=== PATIENT | male | born 1945 | race Caucasian/White ===

== ENCOUNTER 2019-09-14 07:17 | Outpatient (CLI) | payer MEDICARE, OTHER, SELFPAY ==
[2019-09-14 08:06] LABS: Alanine Aminotransferase 19 U/L (4-50); Albumin Level 4.4 g/dL (3.5-5.1); Alkaline Phosphatase 49 U/L (38-126); Aspartate Amino Transferase 22 U/L (17-59); Bilirubin,Total 0.5 mg/dL (0.2-1.3); Blood Urea Nitrogen 18 mg/dL (9-20); Calcium 9.4 mg/dL (8.4-10.2); Carbon Dioxide 28 mmol/L (22-30); Chloride 102 mmol/L (98-107); Cholesterol 123 mg/dL (0-200); Estimated Glomerular Filt Rate > 60; Glucose 142 mg/dL (75-110); HDL Direct 40 mg/dL; Potassium 3.8 mmol/L (3.4-5.0); Sodium 136 mmol/L (137-145); Triglycerides 99 mg/dL (<150)
[2019-09-14 08:11] LABS: Creatinine Urine 71.7 mg/dL
[2019-09-14 08:18] LABS: LDL Cholesterol Direct 66 mg/dL
[2019-09-14 08:24] LABS: Vitamin D 25 Hydroxy 67.9 ng/mL
[2019-09-14 08:52] LABS: Microalbumin Urine Random < 6.0 mg/L (0-16.7)
[2019-09-14 08:53] LABS: MALB Creatinine Ratio < 8.4 mg/g (0-30)
== END 2019-09-14 07:18 | disposition home or self-care (01) ==
PROVIDERS: PCP Internal Medicine; Referring Provider Nurse Practitioner; Visit Provider Internal Medicine
DX: E11.9 Type 2 diabetes mellitus without complications (principal); E78.5 Hyperlipidemia, unspecified; E55.9 Vitamin D deficiency, unspecified; I10 Essential (primary) hypertension
CPT/HCPCS: 36415; 80053; 80061; 82043; 82306; 83036

== ENCOUNTER 2020-07-18 06:45 | Outpatient (CLI) | payer MEDICARE, OTHER, SELFPAY ==
[2020-07-18 07:52] LABS: Hemoglobin A1C 8.3 % (<5.7)
[2020-07-18 07:59] LABS: Alanine Aminotransferase 22 U/L (4-50); Albumin Level 4.3 g/dL (3.5-5.1); Alkaline Phosphatase 48 U/L (38-126); Anion Gap 5 mmol/L (8-16); Aspartate Amino Transferase 22 U/L (17-59); Bilirubin,Total 0.6 mg/dL (0.2-1.3); Blood Urea Nitrogen 16 mg/dL (9-20); Calcium 9.2 mg/dL (8.4-10.2); Carbon Dioxide 30 mmol/L (22-30); Chloride 103 mmol/L (98-107); Cholesterol 125 mg/dL (0-200); Estimated Glomerular Filt Rate > 60; Glucose 184 mg/dL (75-110); HDL Direct 40 mg/dL; Potassium 3.9 mmol/L (3.4-5.0); Sodium 138 mmol/L (137-145); Triglycerides 188 mg/dL (<150)
[2020-07-18 08:10] LABS: LDL Cholesterol Direct 66 mg/dL
[2020-07-18 08:43] LABS: Creatinine Urine 67.4 mg/dL
[2020-07-18 08:47] LABS: MALB Creatinine Ratio 18.4 mg/g (0-30); Microalbumin Urine Random 12.4 mg/L (0-16.7)
[2020-07-18 08:58] LABS: Vitamin D 25 Hydroxy 58.7 ng/mL
== END 2020-07-18 06:46 | disposition home or self-care (01) ==
LOC: ANHLAB 06:48
PROVIDERS: PCP Internal Medicine; Visit Provider Internal Medicine
DX: E55.9 Vitamin D deficiency, unspecified (principal); I10 Essential (primary) hypertension; Z79.899 Other long term (current) drug therapy; E78.5 Hyperlipidemia, unspecified; E11.9 Type 2 diabetes mellitus without complications
CPT/HCPCS: 36415; 80053; 80061; 82043; 82306; 83036

== ENCOUNTER 2021-01-26 06:34 | Outpatient (CLI) | payer MEDICARE, OTHER, SELFPAY ==
[2021-01-26 07:29] LABS: Alanine Aminotransferase 20 U/L (4-50); Albumin Level 4.3 g/dL (3.5-5.1); Alkaline Phosphatase 49 U/L (38-126); Anion Gap 8 mmol/L (8-16); Aspartate Amino Transferase 22 U/L (17-59); Bilirubin,Total 0.5 mg/dL (0.2-1.3); Blood Urea Nitrogen 18 mg/dL (9-20); Calcium 9.2 mg/dL (8.4-10.2); Carbon Dioxide 28 mmol/L (22-30); Chloride 103 mmol/L (98-107); Cholesterol 131 mg/dL (0-200); Estimated Glomerular Filt Rate > 60; Glucose 207 mg/dL (65-110); HDL Direct 39 mg/dL; Potassium 4.2 mmol/L (3.4-5.0); Sodium 139 mmol/L (137-145); Triglycerides 157 mg/dL (<150)
[2021-01-26 07:40] LABS: LDL Cholesterol Direct 61 mg/dL
[2021-01-26 07:53] LABS: Hemoglobin A1C 8.4 % (<5.7)
[2021-01-26 07:59] LABS: Prostate Specific Antigen 2.4 ng/mL (< OR = 4.0)
[2021-01-26 08:11] LABS: Creatinine Urine 108.3 mg/dL
[2021-01-26 08:15] LABS: MALB Creatinine Ratio 17.9 mg/g (0-30); Microalbumin Urine Random 19.4 mg/L (0-16.7)
[2021-01-26 08:17] LABS: Vitamin D 25 Hydroxy 66.7 ng/mL
== END 2021-01-26 06:35 | disposition home or self-care (01) ==
LOC: ANHLAB 06:41
PROVIDERS: PCP Internal Medicine; Visit Provider Internal Medicine
DX: Z12.5 Encounter for screening for malignant neoplasm of prostate (principal); E78.5 Hyperlipidemia, unspecified; I10 Essential (primary) hypertension; E11.9 Type 2 diabetes mellitus without complications; E55.9 Vitamin D deficiency, unspecified
CPT/HCPCS: 36415; 80053; 80061; 82043; 82306; 83036; 84153; G0103

== ENCOUNTER 2021-07-30 06:47 | Outpatient (CLI) | payer MEDICARE, OTHER, SELFPAY ==
[2021-07-30 07:47] LABS: Alanine Aminotransferase 18 U/L (4-50); Albumin Level 4.3 g/dL (3.5-5.1); Alkaline Phosphatase 51 U/L (38-126); Anion Gap 5 mmol/L (8-16); Aspartate Amino Transferase 20 U/L (17-59); Bilirubin,Total 0.5 mg/dL (0.2-1.3); Blood Urea Nitrogen 17 mg/dL (9-20); Calcium 8.9 mg/dL (8.4-10.2); Carbon Dioxide 29 mmol/L (22-30); Chloride 103 mmol/L (98-107); Cholesterol 145 mg/dL (0-200); Estimated Glomerular Filt Rate > 60; Glucose 152 mg/dL (65-110); HDL Direct 40 mg/dL; Sodium 137 mmol/L (137-145); Triglycerides 163 mg/dL (<150)
[2021-07-30 07:58] LABS: LDL Cholesterol Direct 68 mg/dL
[2021-07-30 08:12] LABS: Hemoglobin A1C 6.9 % (<5.7)
== END 2021-07-30 06:48 | disposition home or self-care (01) ==
LOC: ANHLAB 06:49
PROVIDERS: PCP Internal Medicine; Visit Provider Internal Medicine
DX: E55.9 Vitamin D deficiency, unspecified (principal); E11.9 Type 2 diabetes mellitus without complications; I10 Essential (primary) hypertension; E78.5 Hyperlipidemia, unspecified
CPT/HCPCS: 36415; 80053; 80061; 82306; 83036

== ENCOUNTER 2022-02-14 06:41 | Outpatient (CLI) | payer MEDICARE, OTHER, SELFPAY ==
[2022-02-14 08:17] LABS: Alanine Aminotransferase 21 U/L (6-50); Albumin Level 4.5 g/dL (3.5-5.1); Alkaline Phosphatase 45 U/L (38-126); Anion Gap 12 mmol/L (8-16); Aspartate Amino Transferase 20 U/L (17-59); Bilirubin,Total 0.6 mg/dL (0.2-1.3); Blood Urea Nitrogen 18 mg/dL (9-20); Calcium 8.8 mg/dL (8.4-10.2); Carbon Dioxide 26 mmol/L (22-30); Chloride 101 mmol/L (98-107); Cholesterol 139 mg/dL (0-200); Estimated Glomerular Filt Rate > 60; Glucose 171 mg/dL (65-110); HDL Direct 40 mg/dL; Potassium 3.8 mmol/L (3.4-5.0); Sodium 139 mmol/L (137-145); Triglycerides 205 mg/dL (<150)
[2022-02-14 08:28] LABS: LDL Cholesterol Direct 63 mg/dL
[2022-02-14 08:42] LABS: Hemoglobin A1C 8.2 % (<5.7)
== END 2022-02-14 06:42 | disposition home or self-care (01) ==
LOC: ANHLAB 06:43
PROVIDERS: PCP Internal Medicine; Visit Provider Nurse Practitioner
DX: E78.5 Hyperlipidemia, unspecified (principal); E11.9 Type 2 diabetes mellitus without complications
CPT/HCPCS: 36415; 80053; 80061; 83036

== ENCOUNTER 2022-08-14 06:37 | Outpatient (CLI) | payer MEDICARE, OTHER, SELFPAY ==
[2022-08-14 07:47] LABS: Alanine Aminotransferase 22 U/L (6-50); Albumin Level 4.3 g/dL (3.5-5.1); Alkaline Phosphatase 57 U/L (38-126); Anion Gap 9 mmol/L (8-16); Aspartate Amino Transferase 24 U/L (17-59); Bilirubin,Total 0.9 mg/dL (0.2-1.3); Blood Urea Nitrogen 21 mg/dL (9-20); Calcium 8.8 mg/dL (8.4-10.2); Carbon Dioxide 27 mmol/L (22-30); Chloride 99 mmol/L (98-107); Cholesterol 136 mg/dL (0-200); Estimated Glomerular Filt Rate > 60; Glucose 139 mg/dL (65-110); HDL Direct 39 mg/dL; Potassium 3.7 mmol/L (3.4-5.0); Sodium 135 mmol/L (137-145); Triglycerides 142 mg/dL (<150)
[2022-08-14 07:58] LABS: LDL Cholesterol Direct 68 mg/dL
[2022-08-14 12:05] LABS: Hemoglobin A1C 7.4 % (<5.7)
[2022-08-14 13:17] LABS: Vitamin D 25 Hydroxy 70.7 ng/mL
== END 2022-08-14 06:38 | disposition home or self-care (01) ==
PROVIDERS: PCP Internal Medicine; Visit Provider Nurse Practitioner
DX: E11.9 Type 2 diabetes mellitus without complications (principal); I10 Essential (primary) hypertension; E78.5 Hyperlipidemia, unspecified; E55.9 Vitamin D deficiency, unspecified
CPT/HCPCS: 36415; 80053; 80061; 82306; 83036

== ENCOUNTER 2023-02-24 06:42 | Outpatient (CLI) | payer MEDICARE, OTHER, SELFPAY ==
[2023-02-24 07:49] LABS: Alanine Aminotransferase 19 U/L (6-50); Albumin Level 4.3 g/dL (3.5-5.1); Alkaline Phosphatase 44 U/L (38-126); Anion Gap 11 mmol/L (8-16); Aspartate Amino Transferase 19 U/L (17-59); Bilirubin,Total 0.7 mg/dL (0.2-1.3); Blood Urea Nitrogen 20 mg/dL (9-20); Calcium 9.4 mg/dL (8.4-10.2); Carbon Dioxide 26 mmol/L (22-30); Chloride 101 mmol/L (98-107); Cholesterol 145 mg/dL (0-200); Estimated Glomerular Filt Rate > 60; Glucose 141 mg/dL (65-110); HDL Direct 44 mg/dL; Sodium 138 mmol/L (137-145); Triglycerides 189 mg/dL (<150)
[2023-02-24 08:01] LABS: LDL Cholesterol Direct 71 mg/dL
[2023-02-24 08:27] LABS: Hemoglobin A1C 7.5 % (<5.7)
== END 2023-02-24 06:43 | disposition home or self-care (01) ==
LOC: ANHLAB 06:44
PROVIDERS: PCP Family Medicine; Visit Provider Nurse Practitioner
DX: E78.5 Hyperlipidemia, unspecified (principal); E11.9 Type 2 diabetes mellitus without complications
CPT/HCPCS: 36415; 80053; 80061; 83036

== ENCOUNTER 2023-08-28 06:43 | Outpatient (CLI) | payer MEDICARE, SELFPAY ==
[2023-08-28 07:30] LABS: Basophils Percent Auto 0.6 % (0.2-1.2); Eosinophils Absolute Auto 0.2 K/mm3 (0-0.3); Eosinophils Percent Auto 4.1 % (0-4.4); Hematocrit 46.7 % (42.0-52.0); Hemoglobin 15.6 g/dL (14.0-18.0); Immature Granulocyte Absolute 0.02 K/mm3 (0.00-0.031); Immature Granulocyte Percent A 0.4 % (0-0.5); Lymphocytes Absolute Auto 1.26 K/mm3 (0.9-3.2); Lymphocytes Percent Auto 25.7 % (18.3-44.2); Mean Corpuscular HGB Conc 33.4 g/dl (32-36); Mean Corpuscular Hemoglobin 30.1 pg (26-34); Mean Platelet Volume 10.8 fl (7.4-10.4); Monocytes Absolute Auto 0.4 K/mm3 (0.1-0.6); Monocytes Percent Auto 7.8 % (2.6-8.5); Neutrophils Percent Auto 61.4 % (45.5-73.1); Platelet Count Result 181 k/mm3 (150-375); Red Blood Count 5.19 M/mm3 (4.6-6.20); White Blood Count 4.9 K/mm3 (4.5-10.0)
[2023-08-28 07:56] LABS: Creatinine Urine 57.2 mg/dL
[2023-08-28 08:01] LABS: MALB Creatinine Ratio 39.5 mg/g (0-30); Microalbumin Urine Random 22.6 mg/L (0-16.7)
[2023-08-28 08:25] LABS: Hemoglobin A1C 7.5 % (<5.7)
[2023-08-28 08:55] LABS: Alanine Aminotransferase 22 U/L (6-50); Albumin Level 4.7 g/dL (3.5-5.1); Alkaline Phosphatase 55 U/L (38-126); Anion Gap 11 mmol/L (4-12); Aspartate Amino Transferase 22 U/L (17-59); Bilirubin,Total 0.8 mg/dL (0.2-1.3); Blood Urea Nitrogen 23 mg/dL (9-20); Calcium 9.6 mg/dL (8.4-10.2); Carbon Dioxide 22 mmol/L (22-30); Chloride 105 mmol/L (98-107); Estimated Glomerular Filt Rate > 60; Glucose 201 mg/dL (65-110); Potassium 4.1 mmol/L (3.4-5.0); Sodium 138 mmol/L (137-145)
[2023-08-28 09:22] LABS: Prostate Specific Antigen 2.9 ng/mL (< OR = 4.0)
== END 2023-08-28 06:44 | disposition home or self-care (01) ==
PROVIDERS: PCP Nurse Practitioner; Visit Provider Nurse Practitioner Family
DX: E11.9 Type 2 diabetes mellitus without complications (principal); I10 Essential (primary) hypertension; N40.0 Benign prostatic hyperplasia without lower urinary tract symptoms; R97.20 Elevated prostate specific antigen [PSA]; Z12.5 Encounter for screening for malignant neoplasm of prostate
CPT/HCPCS: 36415; 80053; 82043; 83036; 84153; 85025; G0103

== ENCOUNTER 2024-03-02 06:46 | Outpatient (CLI) | payer MEDICARE, SELFPAY ==
[2024-03-02 07:47] LABS: Hemoglobin A1C 8.3 % (<5.7)
[2024-03-02 07:51] LABS: Alanine Aminotransferase 17 U/L (6-50); Albumin Level 4.5 g/dL (3.5-5.1); Alkaline Phosphatase 48 U/L (38-126); Anion Gap 10 mmol/L (4-12); Aspartate Amino Transferase 21 U/L (17-59); Blood Urea Nitrogen 26 mg/dL (9-20); Calcium 9.5 mg/dL (8.4-10.2); Carbon Dioxide 28 mmol/L (22-30); Chloride 100 mmol/L (98-107); Cholesterol 152 mg/dL (0-200); Estimated Glomerular Filt Rate > 60; Glucose 145 mg/dL (65-110); HDL Direct 46 mg/dL; Potassium 4.5 mmol/L (3.4-5.0); Sodium 138 mmol/L (137-145); Triglycerides 215 mg/dL (<150)
[2024-03-02 08:02] LABS: LDL Cholesterol Direct 63 mg/dL
== END 2024-03-02 06:47 | disposition home or self-care (01) ==
LOC: ANHLAB 06:48
PROVIDERS: PCP Nurse Practitioner; Visit Provider Nurse Practitioner
DX: E78.5 Hyperlipidemia, unspecified (principal); E11.9 Type 2 diabetes mellitus without complications
CPT/HCPCS: 36415; 80053; 80061; 83036

== ENCOUNTER 2024-07-06 06:47 | Outpatient (CLI) | payer MEDICARE, SELFPAY ==
--- OUTSIDE RECORDS SUMMARY | 2024-07-06 06:51 | XMS_ITS | Referral Summary ---
Author Organization [facility] [address] Address [address] [place] [address] Care Team Providers Care Terminal Superintendent Name Role Phone Virgil Rivera DO Primary Care Provider [phone] Allergies No known active allergies Medications SITagliptin (JANUVIA) 100 mg tablet take 1 tablet (100MG) by oral route every day 0 3 Active cholecalciferol (VITAMIN D3) 2,000 unit tablet take 1 by Oral route every day 0 3 Active aspirin (ASPIRIN LOW DOSE) 81 mg tablet take 1 Tablet (81MG) by oral route every day 0 3 Active metFORMIN (GLUCOPHAGE) 500 mg tablet take 3 Tablet (1500MG) by oral route 2 times every day with morning and evening meals 0 3 Active Additional Information Patient not taking.Reported on 07/20/2019 simvastatin (ZOCOR) 40 mg tablet take 1 tablet by oral route every day in the evening 0 0 4 Active lisinopril (PRINIVIL,ZESTR IL) 2.5 mg tablet take 1 tablet by oral route every day 0 0 5 Active dyubkmrn-xdw-NN -lycopen-lutein 0.4-300-250 mg-mcg-mcg tabletIndicatio ns:Vitamin Deficiency Prevention Take 1 tablet by mouth daily. Active Janumet 50-1,000 mg per tablet TK 1 T PO BID 0 Active glipiZIDE (GLUCOTROL) 5 mg tablet TK 1 T PO D 0 Active nitroglycerin (NITROSTAT) 0.4 mg SL tabletIndicatio ns:Angina Place 1 tablet (0.4 mg total) under the tongue every 5 (five) minutes as needed for chest pain 25 tablet 3 0 Active Active Problems Problem Noted Date Diagnosed Date Coronary artery disease invo lving [place] coronary artery of [place] heart without angina pectoris 03/25/2017 History of coronary artery stent placement 03/25 Social History Tobacco Use Types Packs/Day Years Used Date Smoking Tobacco: Former Cigarettes Q uit: 03/25/1994 Smokeless Tobacco: Never Tobacco Cessation:Counseling Given: No Alcohol Use Standard Drinks/Week Comments Yes 2 (1 standard drink = 0.6 oz pur e alcohol) annually PHQ-2 Answer Date Recorded PHQ-2 Total Score (If total score is 3 or more points, staff should administer the PHQ-9) 0 07/20/2019 Sex and Gender Information Value Date Recorded Sex Assigned at Not on file 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 Gender Identity Not on file Sexual Orientation Not on file Last Filed Vital Signs Vital Sign Reading Time Taken Comments Blood Pressure 124/68 07/16/2018 1:34 PM CDT Pulse 81 07/16/2018 1:34 PM CDT Temperature - - Respiratory Rate - - Oxygen Saturation 97% 07/16/2018 1:34 PM CDT Inhaled Oxygen Concentration - - Weight 83.9 kg (185 lb) 07/20/2019 2:41 PM CDT Height 170.2 cm (5' 7 ) 07/20/2019 2:41 PM CDT Body Mass Index 28.98 07/20/2019 2:41 PM CDT Plan of Treatment Not on file Insurance MEDICARE [place] [id number] [facility] CHOICE PLUS [facility] HMO/PPO Address: [facility] [address] [place] [address] [address] [phone] Care Teams Terminal Superintendent Relationship Specialty Start Date End Date Virgil Rivera DO PCP - General Internal Medicine 07/16/19
--- OUTSIDE RECORDS SUMMARY | 2024-07-06 06:51 | XMS_ITS | Clinical Summary ---
Author Organization [facility] Address [address] [place] [address] Care Team Providers Care Commercial Sewing Instructor Name Role Phone Juan Murphy MD Primary Care Provider [phone] Social History Tobacco Use Types Packs/Day Years Used Date Smoking Tobacco: Never Assessed Sex and Gender Information Value Date Recorded Sex Assigned at Not on file Legal Sex Male 10:22 PM LAB TECH Gender Identity Not on file Sexual Orientation Not on file Plan of Treatment Upcoming Encounters Date Type Department Care Team (Late st Contact Info) Description 03/16/2025 1:00 PM LAB TECH Office Visit [facility] Audiology [address] [place], [place] [id number] [facility] AUD [address] [place] [address] Health Maintenance Due Date Last Done Comments DTaP, Tdap and Td Vaccines ( 1 - Tdap) 12/17/1962 Annual Medicare Wellness Visit 12/17/2008 Zoster Vaccines (2 of 3) 03/24/2012 01/28/2012 Pneumococcal Vaccine: 65+ Ye ars (2 of 2 - PPSV23 or PCV20) 02/10/2016 02/09/2015 RSV Immunization or 60+ Years (1 - 1-dose 75+ series) 12/17/2018 COVID-19 Vaccine ( - 2023-2 5 season) 2023 Meningococcal B Vaccine Aged Out No l onger eligible based on patient's age to complete this topic Meningococcal Vaccine Aged Out No michelle dutch eligible based on patient's age to complete this topic RSV Immunizations Under 20 Months Aged Out No longer eligible based on patient's age to complete this topic Insurance MEDICARE [facility] Advance Directives Documents on File Type Date Recorded Patient Dsp Engineer Expl anation Legal Documents 08/22/2020 10:06 AM TRAUMA DIRECTOR S LICENSE Care Teams Commercial Sewing Instructor Relationship Specialty Start Date End Date Juan Murphy MD [address] [place] [address] PCP - General FAMILY PRACTICE 03/17/24
--- OUTSIDE RECORDS SUMMARY | 2024-07-06 06:51 | XMS_ITS | Clinical Summary ---
Author Organization [facility] Address [address] [place] [address] Care Team Providers Care Warehouse Worker Name Role Phone Unavailable Primary Care Provider Unavailabl e Source Comments [facility],non-owned Affiliates and Associated Physician Practices is amultiple site organization consisting of ambulatory clinics and hospital sitesin [place], [place], [place] and [place]. This disclosure is being madepursuant to the Care Everywhere program and may not contain all information available regarding this patient. Last updated 17.[facility] Allergies No known active allergies Immunizations Name Administration Dates Next Due INFLUENZA VACCINE, HIGH-DOSE , QUADR. (FLUZONE HIGH-DOSE QUADRIVALENT; 65Y+), 0.7 ML ([id number]-[id number]) 01/21/2020 Social History Tobacco Use Types Packs/Day Years Used Date Smoking Tobacco: Never Assessed Sex and Gender Information Value Date Recorded Sex Assigned at Not on file Gender Identity Not on file Sexual Orientation Not on file Plan of Treatment Health Maintenance Due Date Last Done Comments MEDICARE AWV 12 MONTHS 1945 DTAP/TDAP/TD VACCINES (1 - Tdap) 12/17/1962 PNEUMOCOCCAL VACCINE 50+ (1 of 1 - PCV) 12/17/1993 ZOSTER VACCINE (1 of 2) 12/17/1993 Respiratory Syncytial Virus (RSV) Vaccine Pt: or over 60 yrs (1 - 1-dose 75+ series) 12/17/2018 COVID-19 VACCINE ( - 2023-2 5 season) 2023 INFLUENZA VACCINE (#1) 2023 01/21/2020 DEPRESSION SCREENING 04/07/2024 HEPATITIS B VACCINE Aged Out No longe r eligible based on patient's age to complete this topic HIB VACCINE Aged Out No longer eligi ble based on patient's age to complete this topic HPV VACCINE Aged Out No longer eligi ble based on patient's age to complete this topic MENINGOCOCCAL (Group B) VACC INE SHARED DECISION-MAKING Aged Out No longer eligibl e based on patient's age to complete this topic MENINGOCOCCAL GROUPS A/C/Y/W VACCINE Aged Out No longer eligible b ased on patient's age to complete this topic Jamaal Mendoza Personal/Family Self 1945 [address] [id number]
--- OUTSIDE RECORDS SUMMARY | 2024-07-06 06:51 | XMS_ITS | Clinical Summary ---
Author Organization [facility] [place] [address] Address [address] [place] [address] Care Team Providers Care Section Leader And Machine Setter Name Role Phone Virgil Rivera DO Primary Care Provider [phone] Allergies No known active allergies Medications SITagliptin [...] route every day 0 0 5 Active ypgmymgy-vjf-FB -lycopen-lutein 0.4-300-250 mg-mcg-mcg tabletIndicatio ns:Vitamin Deficiency Prevention [...] Diagnosed Date Coronary artery disease invo lving [place] coronary artery of [place] heart without angina pectoris 03/25/2017 History of coronary artery stent placement 03/25 Family History Medical History Relation Name Comments Heart attack Father 2 Myocardial Infa rction; Relation Name Status Comments Father 1 Alive Father 2 Social History Tobacco Use Types Packs/Day Years [...] on file 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
[2024-07-06 08:11] LABS: Hematocrit 42.6 % (42.0-52.0); Hemoglobin 14.2 g/dL (14.0-18.0); Mean Corpuscular HGB Conc 33.3 g/dl (32-36); Mean Corpuscular Volume 89.9 fl (80-100); Mean Platelet Volume 10.8 fl (7.4-10.4); Platelet Count Result 195 k/mm3 (150-375); Red Blood Count 4.74 M/mm3 (4.6-6.20); Red Cell Distribution Width 13.3 % (11.5-14.5); White Blood Count 5.3 K/mm3 (4.5-10.0)
[2024-07-06 10:40] LABS: Hemoglobin A1C 6.5 % (<5.7)
== END 2024-07-06 06:48 | disposition home or self-care (01) ==
PROVIDERS: PCP Family Medicine; Visit Provider Family Medicine
DX: E11.9 Type 2 diabetes mellitus without complications (principal)
CPT/HCPCS: 36415; 83036; 85027

== ENCOUNTER 2025-01-24 06:44 | Outpatient (CLI) | payer MEDICARE, SELFPAY ==
--- OUTSIDE RECORDS SUMMARY | 2025-01-24 06:48 | XMS_ITS | Clinical Summary ---
Author Organization [facility] [place] [address] Address [address] [place] [address] Care Team Providers Care Tube Filler Name Role Phone Virgil Rivera DO Primary Care Provider [phone] Allergies No known active allergies Medications SITagliptin [...] route every day 0 0 5 Active gsjuplud-fsj-ER -lycopen-lutein 0.4-300-250 mg-mcg-mcg tabletIndicatio ns:Vitamin Deficiency Prevention [...] Diagnosed Date Coronary artery disease invo [place]ving [place] coronary artery of [place] heart without angina pectoris 03/25/2017 History of [...] on file 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
--- OUTSIDE RECORDS SUMMARY | 2025-01-24 06:48 | XMS_ITS | Clinical Summary ---
Author Organization [facility] Address [address] [place] [address] Care Team Providers Care Compounder Helper Name Role Phone Juan Murphy MD Primary Care Provider [phone] Encounters Date Type Department Care Team Description 11/24/2024 2:00 PM CDT Office Visit [facility] Audiology [address] [place] [address] [facility] A[facility] Hearing Aid Check 11/24/2024 Travel from Last 3 Months Social History Tobacco Use Types Packs/Day Years Used Date Smoking Tobacco: Never Assessed Sex and Gender Information Value Date Recorded Sex Assigned at Not on file Legal Sex Male 10:22 PM COLOR SPECIALIST Gender Identity Not on file Sexual Orientation Not on file Plan of Treatment Upcoming Encounters Date Type Department Care Team (Late st Contact Info) Description 03/16/2025 1:00 PM COLOR SPECIALIST Office Visit [facility] Audiology [address] [place] [address] [facility] A[facility] [address] [place] [address] Health Maintenance Due Date Last Done Comments DTaP, Tdap and Td Vaccines (1 - Tdap) 12/17/1962 Annual Medicare Wellness Visit 12/17/2008 Zoster Vaccines (2 of 3) 03/24/2012 01/28/2012 RSV Immunization or 60+ Years (1 - 1-dose 75+ series) 12/17/2018 COVID-19 Vaccine (3 - season) 2024 06/16/2020, 05/19/2020 Influenza Adult (#1) 2025 01/21/2020, 01/04/2019, 01/27/2018, Additional history exists Pneumococcal Vaccine: 50+ Years Completed 02/09/2015, 02/04/2013 Hepatitis A Vaccines Aged Out No long er eligible based on patient's age to complete this topic Meningococcal B Vaccine Aged Out No l onger eligible based on patient's age to complete this topic Meningococcal Vaccine Aged Out No michelle dutch eligible based on patient's age to complete this topic RSV Immunizations Under 20 Months Aged Out No longer eligible based on patient's age to complete this topic Insurance MEDICARE [facility] Advance Directives Documents on File Type Date Recorded Patient Environmental Compliance Technician Expl anation Legal Documents 08/22/2020 10:06 AM GEM STONE CUTTER S LICENSE Care Teams Compounder Helper Relationship Specialty Start Date End Date Juan Murphy MD [address] [place] [address] PCP - General FAMILY PRACTICE 03/17/24
[2025-01-24 08:13] LABS: Hematocrit 42.0 % (42.0-52.0); Hemoglobin 13.4 g/dL (14.0-18.0); Immature Granulocyte Percent A 0.2 % (0-0.5); Lymphocytes Absolute Auto 1.04 K/mm3 (0.9-3.2); Mean Corpuscular HGB Conc 31.9 g/dl (32-36); Mean Corpuscular Hemoglobin 28.8 pg (26-34); Mean Corpuscular Volume 90.1 fl (80-100); Nucleated Red Blood Cells Absolute Auto 0.000 K/mm3 (0.0-0.012); Nucleated Red Blood Cells Perc 0.0 % (0.0-0.2); Platelet Count Result 169 k/mm3 (150-375); Red Blood Count 4.66 M/mm3 (4.6-6.20); White Blood Count 5.5 K/mm3 (4.5-10.0)
[2025-01-24 08:25] LABS: Hemoglobin A1C 6.2 % (<5.7)
[2025-01-24 08:37] LABS: Alanine Aminotransferase 15 U/L (6-50); Albumin Level 4.2 g/dL (3.5-5.1); Alkaline Phosphatase 57 U/L (38-126); Anion Gap 6 mmol/L (4-12); Aspartate Amino Transferase 26 U/L (17-59); Bilirubin,Total 0.6 mg/dL (0.2-1.3); Blood Urea Nitrogen 31 mg/dL (9-20); Calcium 9.5 mg/dL (8.4-10.2); Carbon Dioxide 29 mmol/L (22-30); Chloride 102 mmol/L (98-107); Cholesterol 140 mg/dL (0-200); Estimated Glomerular Filt Rate 53; Glucose 147 mg/dL (65-110); HDL Direct 44 mg/dL; Magnesium 2.3 mg/dL (1.6-2.3); Potassium 4.8 mmol/L (3.4-5.0); Sodium 137 mmol/L (137-145); Total Protein 6.8 g/dL (6.3-8.2); Triglycerides 137 mg/dL (<150)
[2025-01-24 09:31] LABS: Vitamin B12 464.0 pg/mL (239-931)
[2025-01-24 09:32] LABS: MALB Creatinine Ratio 37.9 mg/g (0-30)
== END 2025-01-24 06:45 | disposition home or self-care (01) ==
PROVIDERS: PCP Family Medicine; Visit Provider Family Medicine
DX: E11.9 Type 2 diabetes mellitus without complications (principal); E55.9 Vitamin D deficiency, unspecified; N40.0 Benign prostatic hyperplasia without lower urinary tract symptoms; R97.20 Elevated prostate specific antigen [PSA]; I10 Essential (primary) hypertension; I25.10 Atherosclerotic heart disease of native coronary artery without angina pectoris; I21.9 Acute myocardial infarction, unspecified; E78.49 Other hyperlipidemia; Z00.00 Encounter for general adult medical examination without abnormal findings
CPT/HCPCS: 36415; 80053; 80061; 82043; 82306; 82607; 83036; 83735; 85025